=== PATIENT | male | born 1980 | race African-American/Black ===

== ENCOUNTER 2016-12-02 17:48 | Emergency (ER) | payer OTHER ==
--- NOTE | ~2016-12-02 | CT4 ---
[facility] A Service of [facility] RADIOLOGY TEXT RESULTS PATIENT: DEBBIE JOHNSON LOCATION: [facility] : [birth year] UNIT #: [id number] AGE: [address]: Grupo Sarabia MD SEX: M ORDER DR: [id number] [facility] [address] [facility] [place], [place] [address] [id number] E MR#: [id number] Acc #: [id number] NAME: DEBBIE JOHNSON : 1980 SEX: M STUDY DATE/TIME: 12/02/2016 18:16 UNIT: [facility] ROOM: STUDY DESCRIPTION: CT Abd and Pelv Wo Cont Attending Physician: Grupo Sarabia M.D. Ordering Physician: Grupo Sarabia M.D. Primary Care Physician: Eliana Keita Aprn MEDICAL IMAGING REPORT This report is preliminary unless electronic signature is present EXAM CT scan of the abdomen and pelvis without contrast, 12/02/2016 HISTORY Low back pain radiating to abdomen for 4 days, pain with urination, urinary tract infection. Evaluate for obstructing renal calculus. TECHNIQUE Spiral CT was performed through the abdomen and pelvis without oral or intravenous contrast administration using renal stone protocol. This CT exam was performed with one or more of the following radiation dose reduction techniques: Automatic exposure control, adjustment of mA and/or kV according to patient size, and iterative reconstruction. FINDINGS There is no obstructing renal or ureteral calculus. The kidneys are normal bilaterally. The visualized liver, spleen, pancreas, gallbladder and biliary tree and adrenal glands are normal. PELVIS FINDINGS: The gut, mesenteric and candice structures are normal. There is no free fluid in the abdomen or pelvis. The lung bases are normal. IMPRESSION Negative noncontrast CT of the abdomen and pelvis. No obstructing renal or ureteral calculus. Dictated by... Salomon Taylor M.D. THIS IS AN ELECTRONICALLY VERIFIED REPORT Salomon Taylor M.D. at 12/03/2016 10:28 AM [facility] A Service of [facility] RADIOLOGY TEXT RESULTS PATIENT: DEBBIE JOHNSON LOCATION: [facility] : 80 UNIT #: [id number] AGE: [address]: Grupo Sarabia MD SEX: M ORDER DR: UMESH/uriel TD: 12/02/2016 23:48 JOB #: [id number] MEDICAL IMAGING REPORT Page 1 of 1 COPY
[2016-12-02 18:27] LABS: BASOPHIL% 0.6 % (0-2.5); EOSINOPHIL# 0.2 X10e3 (0-0.7); EOSINOPHIL% 2.3 % (0.0-7.0); HEMATOCRIT 41.2 % (38.0-50.0); LYMPHOCYTE# 2.8 X10e3 (1.0-3.5); LYMPHOCYTE% 37.3 % (17.0-45.0); MEAN CELL VOLUME 73.8 FL (83-96); MEAN CORPUSCULAR HEMOGLOBIN 23.4 PG (28-34); MEAN CORPUSCULAR HGB CONC 31.7 g/dL (30-36); MEAN PLATELET VOLUME 9.1 FL (6.5-11.5); MONOCYTE# 0.5 X10e3 (0-1.0); MONOCYTE% 7.3 % (3.0-12.0); NEUTROPHIL# 3.9 X10e3 (1.5-7.1); NEUTROPHIL% 52.5 % (40-75); PLATELET COUNT 308 X10e3 (140-420); RED BLOOD COUNT 5.58 X10e (3.90-5.60); RED CELL DISTRIBUTION WIDTH 14.5 % (11.0-15.5); WHITE BLOOD COUNT 7.4 X10e3 (4.0-10.5)
[2016-12-02 18:27] LABS: URINE SOURCE CLEAN CATCH
[2016-12-02 18:31] LABS: DIFF IND NO
[2016-12-02 18:35] LABS: URINE APPEARANCE CLEAR; URINE BILIRUBIN NEG (NEG); URINE BLOOD 1+ (NEG); URINE COLOR YELLOW; URINE GLUCOSE NEG (NEG); URINE KETONE TRACE (NEG); URINE LEUKOCYTE ESTERASE 1+ (NEG); URINE NITRATE NEG (NEG); URINE PH 5.5 (5-8); URINE PROTEIN 1+ (NEG); URINE SPECIFIC GRAVITY 1.024 (1.003-1.035)
[2016-12-02 18:36] LABS: CULTURE INDICATED? YES; URINE BACTERIA AUWI 3+ (NEGATIVE); URINE SQUAMOUS EPITHELIAL CELL NONE SEEN /[HPF]; UWBCS1 AUWI 25-50 (0-5)
[2016-12-02 18:52] LABS: ALBUMIN SERUM 4.5 g/dL (3.5-5.0); BILIRUBIN, DIRECT 0.1 mg/dL (0.0-0.2); BILIRUBIN,INDIRECT 0.2 mg/dL (0.0-0.9); BILIRUBIN,TOTAL 0.3 mg/dL (0.2-2.0); CALCIUM SERUM 9.2 mg/dL (8.4-10.2); GLOM FILT RATE Estimated 111.7 mL/min (>60); POTASSIUM 3.4 mmol/L (3.5-5.1); PROTEIN TOTAL SERUM 8.5 g/dL (6.0-8.3)
== END 2016-12-02 19:45 | disposition home or self-care (01) ==
LOC: CED 17:48
PROVIDERS: Emergency Medicine
DX: N39.0 Urinary tract infection, site not specified (principal); I10 Essential (primary) hypertension
CPT/HCPCS: 74176; 80048; 80076; 81003; 83690; 85025; 87086; 87088; 87186; 96361; 96374; 99284; J1885

== ENCOUNTER 2016-12-10 11:43 | Emergency (ER) | payer OTHER ==
--- NOTE | ~2016-12-10 | EKG ---
PATIENT: DEBBIE JOHNSON UNIT #: [id number] Ventricular Rate: 81 BPM Atrial Rate: 81 BPM P-R Interval: 186 ms QRS Duration: 84 ms Q-T Interval: 380 ms QTC Calculation(Bezet): 441 ms P [place]: 31 degrees Calculated R [place]: 19 degrees Calculated T [place]: -48 degrees Diagnosis Line: Normal sinus rhythm Diagnosis Line: ST and T wave abnormality, consider inferior Diagnosis Line: ischemia Diagnosis Line: ST and T wave abnormality, consider anterior Diagnosis Line: ischemia Diagnosis Line: Abnormal ECG Diagnosis Line: When compared with ECG of 27-JUL-2015 00:42, Diagnosis Line: Inverted T waves have replaced nonspecific T wave Diagnosis Line: abnormality in Anterior leads Diagnosis Line: Confirmed by LINDA VOGT MD ([id number]) on 12/11/2016 Diagnosis Line: 5:41:42 AM INTERPRETING MD: TORIE COVINGTON
--- NOTE | ~2016-12-10 | CR72 ---
[facility] A Service of [facility] RADIOLOGY TEXT RESULTS PATIENT: DEBBIE JOHNSON LOCATION: [facility] : 80 UNIT #: [id number] AGE: [address]: Vish Kennedy MD SEX: M ORDER DR: [id number] [facility] [address] [place], [place] [address] [id number] E MR#: [id number] Acc #: [id number] NAME: DEBBIE JOHNSON : 1980 SEX: M STUDY DATE/TIME: 12/10/2016 11:38 UNIT: [facility] ROOM: STUDY DESCRIPTION: CR Chest Single View Portable Attending Physician: Vish Kennedy M.D. Ordering Physician: Vish Kennedy M.D. Primary Care Physician: Mallory Keita MEDICAL IMAGING REPORT This report is preliminary unless electronic signature is present EXAM Chest radiograph in two views DATE: 12/10/16 COMPARISON: Prior chest dated 07/27/15 HISTORY Chest pain midsternal, associated with cough for two to three days. FINDINGS Submaximal inspiration, otherwise negative, no consolidation, effusion or pneumothorax. . Dictated by... Brandon Torres M.D. THIS IS AN ELECTRONICALLY VERIFIED REPORT Brandon Torres M.D. at 12/11/2016 3:56 PM TEV/nash TD: 12/10/2016 13:16 JOB #: [id number] MEDICAL IMAGING REPORT Page 1 of 1 COPY
[2016-12-10 12:06] LABS: BASOPHIL# 0.1 X10e3 (0-0.3); EOSINOPHIL# 0.3 X10e3 (0-0.7); HEMATOCRIT 38.3 % (38.0-50.0); HEMOGLOBIN 12.1 gm/dL (13.0-16.0); LYMPHOCYTE# 1.9 X10e3 (1.0-3.5); LYMPHOCYTE% 31.6 % (17.0-45.0); MEAN CELL VOLUME 73.8 FL (83-96); MEAN CORPUSCULAR HEMOGLOBIN 23.4 PG (28-34); MEAN CORPUSCULAR HGB CONC 31.7 g/dL (30-36); MEAN PLATELET VOLUME 8.9 FL (6.5-11.5); MONOCYTE# 0.7 X10e3 (0-1.0); MONOCYTE% 11.2 % (3.0-12.0); NEUTROPHIL# 3.1 X10e3 (1.5-7.1); NEUTROPHIL% 51.2 % (40-75); PLATELET COUNT 275 X10e3 (140-420); RED BLOOD COUNT 5.19 X10e (3.90-5.60); RED CELL DISTRIBUTION WIDTH 14.7 % (11.0-15.5); WHITE BLOOD COUNT 6.1 X10e3 (4.0-10.5)
[2016-12-10 12:07] LABS: DIFF IND NO
[2016-12-10 12:10] LABS: POC - CKMB 5.6 ng/mL (0.0-7.9); POC - TROPONIN <0.05 ng/mL (<=0.05)
[2016-12-10 12:41] LABS: CALCIUM SERUM 9.3 mg/dL (8.4-10.2); CREATININE SERUM 1.2 mg/dL (0.6-1.4); GLOM FILT RATE Estimated 89.7 mL/min (>60); POTASSIUM 3.8 mmol/L (3.5-5.1)
== END 2016-12-10 14:15 | disposition home or self-care (01) ==
LOC: CED 11:43
PROVIDERS: Emergency Medicine
DX: J06.9 Acute upper respiratory infection, unspecified (principal); R07.89 Other chest pain; J30.2 Other seasonal allergic rhinitis; E11.9 Type 2 diabetes mellitus without complications; I10 Essential (primary) hypertension
CPT/HCPCS: 36415; 71010; 80048; 82553; 84484; 85025; 93005; 94640; 99284

== ENCOUNTER 2016-12-28 09:54 | Emergency (ER) | payer OTHER ==
--- NOTE | ~2016-12-28 | CR72 ---
[facility] A Service of [facility] RADIOLOGY TEXT RESULTS PATIENT: DEBBIE JOHNSON LOCATION: [facility] : 80 UNIT #: [id number] AGE: [address]: Devon Crain MD SEX: M ORDER DR: [id number] [facility] [address] [facility]. [place], [place] [address] [id number] E MR#: [id number] Acc #: [id number] NAME: DEBBIE JOHNSON : 1980 SEX: M STUDY DATE/TIME: 12/28/2016 9:03 UNIT: [facility] ROOM: STUDY DESCRIPTION: CR Chest Single View Portable Attending Physician: Devon Crain M.D. Ordering Physician: Soha Porras P.A.-C. Primary Care Physician: Mallory Keita MEDICAL IMAGING REPORT This report is preliminary unless electronic signature is present EXAM Portable chest 1 view 12/28/2016 COMPARISON 12/10/2016. HISTORY Short of air since 03:00 a.m. today. COMPARISON 12/10/2016. FINDINGS A single AP portable view of the chest shows both lungs to be clear. The heart is normal in size. The mediastinal contour is normal. No significant bone abnormalities are seen. IMPRESSION Normal portable chest. Dictated by... Brandon Torres M.D. THIS IS AN ELECTRONICALLY VERIFIED REPORT Brandon Torres M.D. at 12/31/2016 10:32 AM YAMIL/jian TD: 12/28/2016 12:01 JOB #: [id number] MEDICAL IMAGING REPORT [facility] A Service of [facility] RADIOLOGY TEXT RESULTS PATIENT: DEBBIE JOHNSON LOCATION: [facility] : 80 UNIT #: [id number] AGE: [address]: Devon Crain MD SEX: M ORDER DR: Page 1 of 1 COPY
--- NOTE | ~2016-12-28 | EKG ---
PATIENT: DEBBIE JOHNSON UNIT #: [id number] Ventricular Rate: 71 BPM Atrial Rate: 71 BPM P-R Interval: 178 ms QRS Duration: 102 ms Q-T Interval: 384 ms QTC Calculation(Bezet): 417 ms P [place]: 34 degrees Calculated R [place]: 27 degrees Calculated T [place]: -37 degrees Diagnosis Line: Normal sinus rhythm Diagnosis Line: T wave abnormality, consider inferior ischemia Diagnosis Line: T wave abnormality, consider anterolateral Diagnosis Line: ischemia Diagnosis Line: Abnormal ECG Diagnosis Line: When compared with ECG of 10-DEC-2016 11:32, Diagnosis Line: ST no longer depressed in Anterior leads Diagnosis Line: Confirmed by ANGELA PRUITT MD ([id number]) on 12/30/2016 Diagnosis Line: 4:03:11 PM INTERPRETING MD: EDMOND COVINGTON
--- NOTE | ~2016-12-28 | HP ---
Unit #: [id number] #: [id number] Patient: DEBBIE JOHNSON [id number] [address] [place], [place] [address] [id number] I MR#: [id number] NAME: DEBBIE JOHNSON ROOM: 13665 Age: 36 Sex: M Admission Date: 12/28/2016 : 1980 Attending Physician: Abdelrahman Clark M.D. Primary Care Physician: Eliana Keita Aprn HISTORY AND PHYSICAL HISTORY OF PRESENT ILLNESS This is a 36-year-old male with a history of diabetes mellitus, diet controlled, hypertension and morbid obesity. His weight is 390 pounds, BMI 52. He presented to the emergency room after having an episode of dizziness and some atypical chest tightness, chest pain. 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 He said that he was up through the night and at about 3:30 he stood up to go to the bathroom and developed acute episode of dizziness and lightheadedness. He had to sit down and then he stated he even had blurry vision for just a few seconds. After he sat down a while the lightheadedness resolved. The patient also had episodes of some light pressure substernally and there was no radiation of the discomfort up into his neck, bilateral jaws, shoulders, arms or elbows. He denies any syncope with the episode. He has never had any syncope. He denies any palpitations with this episode. He denies any unusual increased lower extremity edema. He was recently treated for e-coli urinary tract infection about two weeks ago as an outpatient. He said he is not having any urinary symptoms. No fever, chills. He has occasional dry cough. He denies any nausea, vomiting, diarrhea or abdominal pain. In the emergency room the patient's blood pressure was 142/84, heart rate 83, respiratory rate 18, temperature 98.7, O2 saturations 100% on room air. His EKG shows normal sinus rhythm. He does have some T wave inversions in the inferior and anterolateral leads. The patient had been to the emergency room back in November for followup for his urinary tract infection and he had an EKG done and it showed similar findings. He did have an outpatient appointment to see one of our cardiologists in the office next week, but the patient with his symptoms came on in today just for further evaluation. PAST MEDICAL HISTORY 1. Hypertension. 2. Diabetes mellitus type 2, diet controlled. 3. Morbid obesity, weight 390 pounds, BMI 52. 4. Nonsmoker. 5. Recent urinary tract infection. PAST SURGICAL HISTORY None. SOCIAL HISTORY The patient lives with his mother. 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 He says he has been a lifetime nonsmoker. No alcohol or illicit drug use. He stated in the remote past he used some marijuana, Unit #: [id number] #: [id number] Patient: DEBBIE JOHNSON but no other illicit drugs. FAMILY HISTORY His father from complications of chronic kidney disease. His mother is living and in generally well health. Siblings are in generally well health. ALLERGIES No known drug allergies. HOME MEDICATIONS 1. Claritin 10 mg p.o. daily. 2. Ventolin 1-2 puffs inhalation q.4 h. p.r.n. 3. Norvasc 10 mg p.o. daily. 4. Zestoretic 20/12.5 two tablets daily. 5. Toprol XL 50 mg p.o. daily. REVIEW OF SYSTEMS The patient had some visual blurriness when he was lightheaded earlier. No lymphadenopathy or thyromegaly. No difficulty swallowing. CARDIOVASCULAR: Some atypical chest pain. Denies paroxysmal nocturnal dyspnea and orthopnea. GI: Denies nausea, vomiting or diarrhea or abdominal pain. NEUROLOGICAL: Had some lightheadedness. PHYSICAL EXAMINATION GENERAL: Mr Johnson is a 36-year-old male in no acute respiratory distress. He is awake, alert and oriented. VITALS: Blood pressure 129/77, heart rate 74, respiratory rate 18, temperature 98.7, O2 saturations 98% on room air. NECK: Trachea midline. No thyromegaly or lymphadenopathy. Normal carotid upstrokes. No jugular venous distension. LUNGS: Diminished. HEART: S1 and S2. Regular rate and rhythm. No clicks, murmurs or rubs. ABDOMEN: Obese, soft, nontender. Positive bowel sounds present. EXTREMITIES: Pedal pulses are palpable. Trace pedal edema. DIAGNOSTIC STUDIES IMAGING: Chest x-ray does not show anything acute. LABORATORY: Glucose 222, BUN 9, creatinine 1.0, EGFR 111.7, sodium 135, potassium 3.7, chloride 103, pO2 27, calcium 8.6, total protein 7.1, albumin 3.8, bilirubin total 0.68, AST 21, ALT 27, alkaline phosphatase 79, BNP 8. White blood cell count 6.0, hemoglobin 11.5, hematocrit 36.8, platelets 245. Initial cardiac enzymes, CK-MB 1.4, troponin less than 0.05; CK-MB 2.3, troponin less than 0.05. Urinalysis shows 1.0 urobilinogen, otherwise unremarkable. CARDIOVASCULAR: EKG shows normal sinus rhythm with T wave inversion in inferior and anterolateral leads, poor R wave progression. ASSESSMENT 1. Dizziness. 2. Abnormal EKG, anterolateral ST-T wave abnormalities. 3. Hypertension. 4. Diabetes mellitus type 2. 5. Morbid obesity. Weight 390 pounds. BMI 52. 6. Recent urinary tract infection. Unit #: [id number] #: [id number] Patient: DEBBIE JOHNSON 7. Nonsmoker. PLAN 1. Looking back on the patient's EKG they look similar since the first of the year. He had some chest pressure, but no signs or symptoms of unstable angina. There are no signs or symptoms of acute congestive heart failure. 2. Will obtain a two-dimensional echo to evaluate left ventricular function and valves. Will also, since he is not having any symptoms of angina or heart failure, proceed with an outpatient stress test. Will have to get that scheduled at [facility] due to the patient's morbid obesity. Our office will call the patient at home with appointment time and further information. 3. Will make a follow-up appointment with Dr. Ramírez on 04/01/2017 at 1 p.m. 4. Discussed the plan with the patient and his mother. They verbalized understanding. 5. Encouraged the patient to take a baby aspirin daily. 6. Encouraged the patient to exercise and lose weight, healthy lifestyle changes. The patient verbalizes that he had lost 50 pounds over the past year, but gained most of it back and is interested in trying to change his lifestyle. Dictated by Angel Dominguez TD: 12/28/2016 13:19 JOB #: [id number] CC: Eliana Keita Aprn [facility] HISTORY AND PHYSICAL Page 1 of 1 X Yamilka Sun APRN X HISTORY AND PHYSICAL
[2016-12-28 09:47] LABS: URINE SOURCE CLEAN CATCH
[2016-12-28 09:56] LABS: BASOPHIL# 0.1 X10e3 (0-0.3); BASOPHIL% 1.1 % (0-2.5); EOSINOPHIL# 0.2 X10e3 (0-0.7); EOSINOPHIL% 3.1 % (0.0-7.0); HEMATOCRIT 36.8 % (38.0-50.0); HEMOGLOBIN 11.5 gm/dL (13.0-16.0); LYMPHOCYTE% 32.9 % (17.0-45.0); MEAN CELL VOLUME 73.5 FL (83-96); MEAN CORPUSCULAR HGB CONC 31.3 g/dL (30-36); MONOCYTE# 0.4 X10e3 (0-1.0); MONOCYTE% 7.5 % (3.0-12.0); NEUTROPHIL# 3.3 X10e3 (1.5-7.1); NEUTROPHIL% 55.4 % (40-75); PLATELET COUNT 245 X10e3 (140-420); RED BLOOD COUNT 5.01 X10e (3.90-5.60); RED CELL DISTRIBUTION WIDTH 14.9 % (11.0-15.5)
[2016-12-28 09:56] LABS: URINE APPEARANCE CLEAR; URINE BILIRUBIN NEG (NEG); URINE BLOOD NEG (NEG); URINE COLOR YELLOW; URINE GLUCOSE NEG (NEG); URINE KETONE NEG (NEG); URINE LEUKOCYTE ESTERASE NEG (NEG); URINE NITRATE NEG (NEG); URINE PH 5.5 (5-8); URINE PROTEIN NEG (NEG); URINE SPECIFIC GRAVITY 1.026 (1.003-1.035)
[2016-12-28 09:58] LABS: POC - CKMB 2.3 ng/mL (0.0-7.9); POC - TROPONIN <0.05 ng/mL (<=0.05)
[2016-12-28 10:02] LABS: CULTURE INDICATED? NO
[2016-12-28 10:02] LABS: DIFF IND NO
[2016-12-28 10:35] LABS: ALBUMIN SERUM 3.8 g/dL (3.5-5.0); BILIRUBIN, DIRECT 0.1 mg/dL (0.0-0.2); BILIRUBIN,INDIRECT 0.5 mg/dL (0.0-0.9); BILIRUBIN,TOTAL 0.6 mg/dL (0.2-2.0); CALCIUM SERUM 8.6 mg/dL (8.4-10.2); GLOM FILT RATE Estimated 111.7 mL/min (>60); POTASSIUM 3.7 mmol/L (3.5-5.1); PROTEIN TOTAL SERUM 7.1 g/dL (6.0-8.3)
[2016-12-28 11:31] LABS: POC - CKMB 1.4 ng/mL (0.0-7.9); POC - TROPONIN <0.05 ng/mL (<=0.05)
[2016-12-28] MEDS ORDERED: CLARITIN10 M3 PO (12:44)
[2016-12-28] MEDS ORDERED: NORVASC10 MG PO (12:45)
[2016-12-28] MEDS ORDERED: ALBUTEROL17 GM INH (12:45)
[2016-12-28] MEDS ORDERED: ZESTORETIC 20-1 EAC1 PO (12:45)
[2016-12-28] MEDS ORDERED: TOPROL XL50 MG PO (12:46)
== END 2016-12-28 14:35 | disposition home or self-care (01) ==
LOC: CED 09:54
PROVIDERS: Emergency Medicine; Physician Assistant
DX: R06.02 Shortness of breath (principal); R42 Dizziness and giddiness; E11.9 Type 2 diabetes mellitus without complications; I10 Essential (primary) hypertension; Z77.22 Contact with and (suspected) exposure to environmental tobacco smoke (acute) (chronic); Z79.899 Other long term (current) drug therapy
CPT/HCPCS: 36415; 71010; 80048; 80076; 81003; 82553; 82947; 83880; 84484; 85025; 93005; 93306; 94640; 99285; J1650

== ENCOUNTER 2017-02-22 22:14 | Emergency (ER) | payer OTHER ==
--- NOTE | ~2017-02-22 | CR173 ---
[facility] A Service of [facility] RADIOLOGY TEXT RESULTS PATIENT: DEBBIE JOHNSON LOCATION: [facility] : 80 UNIT #: [id number] AGE: [address]: Lindsey Guthrie APRN SEX: M ORDER DR: [id number] [facility] [address] [facility]. [place], [place] [address] [id number] E MR#: [id number] Acc #: [id number] NAME: DEBBIE JOHNSON : 1980 SEX: M STUDY DATE/TIME: 02/22/2017 23:34 UNIT: [facility] ROOM: STUDY DESCRIPTION: CR Knee 3 Views Rt Attending Physician: Lindsey Guthrie A.P.R.N. Ordering Physician: Ed Chago Johnson M.D. Primary Care Physician: Eliana Keita Aprn MEDICAL IMAGING REPORT This report is preliminary unless electronic signature is present EXAM Right knee. INDICATIONS Right knee pain and swelling. Pain with motion. FINDINGS Three views of the right knee without comparison. There is no acute fracture or dislocation. No knee effusion. No foreign body. Joint spaces are well preserved. IMPRESSION Negative right knee. Dictated by... Macho Bundy M.D. THIS IS AN ELECTRONICALLY VERIFIED REPORT Macho Bundy M.D. at 02/24/2017 1:03 AM VALDEMAR/maría TD: 02/23/2017 15:20 JOB #: [id number] MEDICAL IMAGING REPORT Page 1 of 1 COPY
--- NOTE | ~2017-02-22 | CR107 ---
[facility] A Service of [facility] & [facility] RADIOLOGY TEXT RESULTS PATIENT: DEBBIE JOHNSON LOCATION: [facility] : 80 UNIT #: [id number] AGE: [address]: Lindsey Guthrie APRN SEX: M ORDER DR: [id number] [facility] [address] [place], [place] [address] [id number] E MR#: [id number] Acc #: [id number] NAME: DEBBIE JOHNSON : 1980 SEX: M STUDY DATE/TIME: 02/23/2017 0:26 UNIT: [facility] ROOM: STUDY DESCRIPTION: CR Femur 2 Views Rt Attending Physician: Lindsey Guthrie A.P.R.N. Ordering Physician: Lindsey Guthrie A.P.R.N. Primary Care Physician: Eliana Keita Aprn MEDICAL IMAGING REPORT This report is preliminary unless electronic signature is present EXAM Right femur. INDICATIONS Right femur pain. Pain with range of motion. FINDINGS Two views of the right femur without comparison. There is no acute fracture or dislocation. There is some dystrophic calcification in the quadriceps tendon. Please note there is some mild patellar austin. Correlate for any evidence of quadriceps injury. IMPRESSION 1. Evidence suggesting some mild patellar austin. Correlate for any evidence of a quadriceps tendon injury. Dictated by... Macho Bundy M.D. THIS IS AN ELECTRONICALLY VERIFIED REPORT Macho Bundy M.D. at 02/24/2017 1:01 AM VALDEMAR/maría TD: 02/23/2017 16:03 JOB #: [id number] MEDICAL IMAGING REPORT Page 1 of 1 COPY
[~2017-02-22 22:14] MED LIST: ALBUTEROL17 GM INH; CLARITIN10 M3 PO; NORVASC10 MG PO; TOPROL XL50 MG PO; ZESTORETIC 20-1 EAC1 PO
== END 2017-02-23 02:50 | disposition home or self-care (01) ==
LOC: CFTX 22:14 → CED 22:14 → CFTX 23:47
DX: S76.111A Strain of right quadriceps muscle, fascia and tendon, initial encounter (principal); Z76.0 Encounter for issue of repeat prescription; X58.XXXA Exposure to other specified factors, initial encounter; Y93.67 Activity, basketball; Y92.009 Unspecified place in unspecified non-institutional (private) residence as the place of occurrence of the external cause; E11.9 Type 2 diabetes mellitus without complications; I10 Essential (primary) hypertension
CPT/HCPCS: 29530; 73552; 73562; 99283

== ENCOUNTER 2017-03-12 10:59 | Observation (INO) | payer OTHER ==
[~2017-03-12] VITALS: Ht 182.9 cm; Wt 175.6 kg
--- NOTE | ~2017-03-12 | OR ---
Unit #: [id number] #: [id number] Patient: DEBBIE JOHNSON [id number] [address] [place], [place] [address] [id number] MR#: [id number] NAME: DEBBIE JOHNSON ROOM: 452 Date of Procedure: 03/12/2017 Admission Date: 03/12/2017 Surgeon: Frances Lake M.D. : 1980 Attending Physician: Frances Lake M.D. Primary Care Physician: Mallory Keita OPERATIVE REPORT PREOPERATIVE DIAGNOSIS Right knee quadriceps tendon rupture. POSTOPERATIVE DIAGNOSIS Right knee quadriceps tendon rupture. PROCEDURE PERFORMED Right quadriceps tendon repair ([id number]). 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 ANESTHESIA General. INDICATIONS FOR SURGERY This 36-year-old morbidly obese male, fell approximately 10 days ago, injuring his right knee. He is unable to do a single leg raise and x-rays demonstrate patella baja. His exam was consistent with quadriceps tendon rupture. He is therefore to undergo quadriceps tendon repair. DESCRIPTION OF PROCEDURE The patient was taken to the operating room and placed in supine position and general anesthetic was induced. The right knee was identified as the correct operative location during the time-out procedure. The IV antibiotic protocol was followed. The right leg was then prepped and draped in the usual sterile fashion. The leg was exsanguinated and the thigh tourniquet inflated to 300 mmHg. A 12 cm anterior longitudinal incision was made over the knee joint. Subcutaneous tissue was divided. The rupture was readily identified. The wound was copiously irrigated. #5 Ethibond suture was utilized to place two Krackow running sutures in the quadriceps tendon. A 2.5 mm diameter drill bit was then used to make four drill holes from the superior pole of the patella out the anterior cortex of the patella. Suture retriever was then used to pass the four limbs of suture through these drill holes. With the knee held extended, the sutures were tied. The quad tendon was then oversewn with multiple #2 FiberWire sutures. The medial and lateral patellofemoral retinaculum was also repaired with #2 FiberWire [id number] sutures. The wounds were copiously irrigated. Subcutaneous tissue was closed with 2-0 Vicryl. Skin was closed with skin jasmyne. Tourniquet was released prior to closure and bleeding was Unit #: [id number] #: [id number] Patient: DEBBIE JOHNSON controlled with electrocautery. Tourniquet time was 60 minutes. The wounds were dressed with Xeroform gauze, dressing, sponges, Kerlix, Wesley wrap, and knee immobilizer. The patient was then transported to the recovery room in stable condition. ESTIMATED BLOOD LOSS Minimal. COMPLICATIONS None. SPECIMENS None. TOURNIQUET TIME 1 hour. Dictated by.Karl Rosenthal/luciano TD: 03/13/2017 10:46 JOB #: [id number] OPERATIVE REPORT Page 1 of 1 X [place] MD X PROCEDURE OPERATIVE NOTE
--- NOTE | ~2017-03-12 | HP ---
Unit #: [id number] #: [id number] Patient: DEBBIE JOHNSON [id number] [address] [address] [id number] I MR#: [id number] NAME: DEBBIE JOHNSON ROOM: 452 Age: Sex: M Admission Date: 03/12/2017 : 1980 Attending Physician: Frances Lake M.D. Primary Care Physician: Mallory Keita HISTORY AND PHYSICAL CHIEF COMPLAINT Right knee pain and weakness. HISTORY OF PRESENT ILLNESS The patient is a 36-year-old morbidly obese male who was playing basketball on February 23 when he heard a pop in his knee and his knee gave out. Since that time, he has been unable to extend the knee. He noticed a soft spot above his knee joint. He was seen in the emergency room and given crutches and diagnosed with a quadriceps tendon tear. He is now admitted for right quadriceps tendon repair. PAST MEDICAL HISTORY 1. Morbid obesity. 2. Chest pain with abnormal EKG. 3. Hypertension. PAST SURGICAL HISTORY None. HOME MEDICATIONS Lisinopril. ALLERGIES None. SOCIAL HISTORY The patient is a five pack-year smoker. He drinks alcohol socially. REASON FOR HOSPITALIZATION Unremarkable. REVIEW OF SYSTEMS Unremarkable. PHYSICAL EXAMINATION VITAL SIGNS: Height 5 feet 7, weight 370 pounds. GENERAL: This is a morbidly obese male in no acute distress. HEENT: Pharynx is clear. NECK: Supple without masses. HEART: Regular sinus rhythm without murmurs or gallops. LUNGS: Clear. ABDOMEN: Soft and nontender. EXTREMITIES: Examination of the right leg shows mild swelling. Range of motion was not tested. He is unable to extend his knee against gravity. Unit #: [id number] #: [id number] Patient: DEBBIE JOHNSON He is unable to lift his leg off the examining table. He has a palpable defect superior to the patella in the quadriceps tendon. Medial and lateral collateral ligaments are stable. Jessica test is negative. Posterior tibial sag test is negative. Pulses are intact. Sensation is normal. Motor exam is otherwise normal. DIAGNOSTIC STUDIES IMAGING: AP and lateral views of the right knee show patella baja which is evidence of clinical quadriceps tendon injury. ADMITTING DIAGNOSIS Right knee quadriceps tendon tear. PLAN The patient will undergo repair of the right knee quadriceps tendon. Will repair the tendon through drill holes in the patella. This procedure was described along with the risks of bleeding, infection, nerve damage, need for further surgery in the future, prolonged recovery time, deep venous thrombosis, pulmonary embolism, and anesthetic complications. Patient will not be able to bend his knee for six weeks. He understands the above risks and agrees to proceed. Dictated by Karl Pacheco/yi TD: 03/11/2017 18:31 JOB #: [id number] HISTORY AND PHYSICAL Page 1 of 1 X [place] MD X HISTORY AND PHYSICAL
--- NOTE | ~2017-03-12 | CO ---
Unit #: [id number] #: [id number] Patient: DEBBIE JOHNSON [id number] [facility] [address] [place], [place] [address] [id number] MR#: [id number] NAME: DEBBIE JOHNSON ROOM: 452 Age: 36 Sex: M Admission Date: 03/12/2017 : 1980 Attending Physician: Frances Lake M.D. Primary Care Physician: Eliana Keita Aprn Consultation Date: 03/12/2017 CONSULTATION REPORT REASON FOR CONSULTATION Postop diabetes medical management. HISTORY OF PRESENT ILLNESS The patient is a 36-year-old male with a past medical history of hypertension, diabetes, and morbid obesity, who was admitted by Dr. Lake on March 12, 2017, for elective right quadriceps repair. HIPS was consulted for diabetes management. The patient states that he was playing basketball on February 22, 2017. He had the immediate onset of a sharp pain in his thigh area. He was seen in the emergency department here at [facility]. He was told to follow up with Dr. Lake. He apparently saw Dr. Lake who recommended repair which was done today. Regarding the patient's chronic medical conditions, he has diabetes. He does not routinely check his blood sugars at home. He is not on medication. Regarding hypertension, the patient is on Norvasc, Zestoretic, and Toprol-XL which he has been taking as prescribed. PAST MEDICAL HISTORY 1. Admission to [facility] December 28, 2016, for chest pain. Per the History and Physical, an echocardiogram was ordered. He was supposed to have a stress test as an outpatient at [facility]. The patient states that he did not end up getting a stress test at [facility]. 2. Diabetes, diet controlled. 3. Hypertension. 4. Morbid obesity with a BMI of 52. PAST SURGICAL HISTORY 1. Cystoscopy. 2. Right quadriceps repair. SOCIAL HISTORY The patient lives with his mom. He does not smoke or drink. He states that he had been working for [employer]. FAMILY HISTORY Notable for his dad having chronic kidney disease. REVIEW OF SYSTEMS A complete review of systems is negative except as indicated in the History of Present Illness. Unit #: [id number] #: [id number] Patient: DEBBIE JOHNSON PHYSICAL EXAMINATION VITAL SIGNS: Temperature is 98.1, pulse 81, respirations 18, blood pressure 169/84, and oxygen saturation 95% on room air. GENERAL: Patient is a very pleasant male who is sleeping but wakes to voice. HEENT: Head is atraumatic. Mucous membranes are moist. NECK: Supple. Trachea is midline. CARDIOVASCULAR: Regular rate and rhythm. LUNGS: Clear to auscultation bilaterally with no increased work of breathing. ABDOMEN: Obese, soft, and nontender with bowel sounds present in all four quadrants. EXTREMITIES: There is an Wesley bandage and immobilizer about the right lower extremity. There is no pedal edema. NEUROLOGIC: Patient is awake and alert. He is oriented x3. He follows commands. PSYCHIATRIC: Mood and affect are normal. Patient is cooperative. SKIN: Skin of examined areas is warm and dry. DIAGNOSTIC STUDIES LABORATORY: Accu-Chek most recently 212. Basic metabolic panel notable for glucose of 124. ASSESSMENT The patient is a 36-year-old male with: 1. Status post right quadriceps repair. 2. Hypertension. 3. Diabetes. 4. Morbid obesity with a body mass index of 52. 5. Increased risk of obstructive sleep apnea. PLAN 1. Regarding diabetes, I have ordered a hemoglobin A1c, as well as low-dose sliding scale insulin with Accu-Cheks. 2. Regarding increased risk of obstructive sleep apnea, I have ordered the obstructive sleep apnea protocol. Thank you very much for the consultation. We will follow the patient along closely with you. Dictated by... Chula Pham M.D. MARLON/yi TD: 03/12/2017 20:28 JOB #: [id number] Unit #: [id number] #: [id number] Patient: DEBBIE JOHNSON CONSULTATION REPORT Page 1 of 1 X Chula Pham MD CONSULTATION REPORT
[2017-03-12] MEDS ORDERED: HYDROCODON-ACE1 EAC7 PO (11:29)
[2017-03-12 12:13] LABS: CALCIUM SERUM 9.1 mg/dL (8.4-10.2); CREATININE SERUM 1.2 mg/dL (0.6-1.4); GLOM FILT RATE Estimated 89.7 mL/min (>60); POTASSIUM 3.9 mmol/L (3.5-5.1)
[2017-03-13 02:51] LABS: BASOPHIL% 0.3 % (0-2.5); EOSINOPHIL# 0.1 X10e3 (0-0.7); EOSINOPHIL% 0.6 % (0.0-7.0); HEMATOCRIT 35.1 % (38.0-50.0); HEMOGLOBIN 10.9 gm/dL (13.0-16.0); LYMPHOCYTE% 20.8 % (17.0-45.0); MEAN CELL VOLUME 73.7 FL (83-96); MEAN CORPUSCULAR HGB CONC 31.2 g/dL (30-36); MEAN PLATELET VOLUME 8.3 FL (6.5-11.5); MONOCYTE# 0.9 X10e3 (0-1.0); MONOCYTE% 9.3 % (3.0-12.0); NEUTROPHIL# 6.7 X10e3 (1.5-7.1); PLATELET COUNT 302 X10e3 (140-420); RED BLOOD COUNT 4.76 X10e (3.90-5.60); RED CELL DISTRIBUTION WIDTH 14.8 % (11.0-15.5); WHITE BLOOD COUNT 9.8 X10e3 (4.0-10.5)
[2017-03-13 03:07] LABS: DIFF IND NO
[2017-03-13 03:24] LABS: ALBUMIN SERUM 3.8 g/dL (3.5-5.0); BILIRUBIN,TOTAL 0.5 mg/dL (0.2-2.0); CALCIUM SERUM 8.6 mg/dL (8.4-10.2); GLOM FILT RATE Estimated 111.7 mL/min (>60); POTASSIUM 4.1 mmol/L (3.5-5.1); PROTEIN TOTAL SERUM 7.3 g/dL (6.0-8.3)
[2017-03-13] MEDS ORDERED: XARELTO10 MG PO (11:50)
[2017-03-13] MEDS ORDERED: OXYCODONE-ACET1 EACH PO (11:51)
== END 2017-03-13 15:10 | disposition home or self-care (01) ==
LOC: CSUR 10:59 → CPACUOF 14:40 → C4B 15:05 → CPACUOF 18:15 → C4B 03-13 15:10
PROVIDERS: Family Medicine; Orthopaedic Surgery
DX: S76.111A Strain of right quadriceps muscle, fascia and tendon, initial encounter (principal); I10 Essential (primary) hypertension; E11.9 Type 2 diabetes mellitus without complications; E66.01 Morbid (severe) obesity due to excess calories; Z68.43 Body mass index [BMI] 50.0-59.9, adult; Z79.899 Other long term (current) drug therapy; F17.200 Nicotine dependence, unspecified, uncomplicated; Z84.89 Family history of other specified conditions; Z98.890 Other specified postprocedural states
CPT/HCPCS: 80048; 80053; 82947; 83036; 85025; 94761; 96374; 96375; 96376; 97116; 97161; 97530; C1713; G0378; G8978-GP; G8979-GP; G8980-GP; J0360; J0690; J1170; J1815; J1885; J2250; J2270; J2405; J3010